=== PATIENT | female | born 1990 | race Caucasian/White ===

== ENCOUNTER 2017-01-18 09:00 | Inpatient (IN) ==
[2017-02-16] MEDS ORDERED: D5LR 1,000 ML IV PRN (06:42)
[2017-02-16] MEDS ORDERED: MAG-AL + SIM ORAL LIQUID 30ml PO PRN ×2 (06:42→15:54)
[2017-02-16] MEDS ORDERED: LIDOCAINE 1% (10mg/ml) 2mL INJ PF SDV ID PRN (06:42)
[2017-02-16] MEDS ORDERED: CARBOPROST 250 MCG/ML INJECTION IM PRN (06:42)
[2017-02-16] MEDS ORDERED: METHYLERGONOVINE 0.2 MG/ML INJECTION IM PRN (06:42)
[2017-02-16] MEDS ORDERED: CALCIUM CARBONATE Chewable 500mg TABLET PO PRN ×2 (06:42→15:54)
[2017-02-16] MEDS ORDERED: OXYTOCIN DRIP 30 UNIT/500 ML ML IV PRN (06:42)
[2017-02-16] MEDS ORDERED: ACETAMINOPHEN 500 MG TABLET PO PRN ×2 (06:42→15:54)
[2017-02-16 07:00] VITALS: BMI 30.9
[2017-02-16] MEDS ORDERED: CEFAZOLIN PREMIX (MC ONLY) 2 GM/50 ML BAG IV ONE (07:00)
[2017-02-16] MEDS: LR 1,000 ML IV PRN ×2 (07:01→08:42)
[2017-02-16] MEDS ORDERED: NALOXONE 0.4 MG/ML INJECTION IVP PRN (09:08)
[2017-02-16] MEDS ORDERED: ROPIVACAINE 1% 10MG/ML INJ 200 MG, SUFentanil 50 MCG in NS 100 ML EPI PRN (09:08)
[2017-02-16] MEDS ORDERED: ONDANSETRON 4 MG/2 ML INJECTION IVP PRN (09:08)
[2017-02-16] MEDS ORDERED: DiphenhydrAMINE 50 MG/ML INJECTION IVP PRN (09:08)
--- NOTE | 2017-02-16 09:08 | Anesthesia Preoperative Report ---
Anesthesia Epidural/Spinal Rec - Date and Time Date: 02/16/17 Preoperative Diagnosis: 39 wk Procedure: Labor Epidural Plan: Epidural - Vital Signs Vital Signs: Temperature 97.9 F 02/16/17 07:24 Pulse Rate 71 02/16/17 07:24 Respiratory Rate 16 02/16/17 07:24 Blood Pressure 129/82 02/16/17 07:24 Pulse Oximetry 98 02/16/17 07:24 Oxygen Delivery Method Room Air /Para: P:0 - Medictaions & Allergies Inpatient Medications: Current Medications Acetaminophen (Tylenol) 500 - 1,000 mg PO Q4H PRN PRN Reason: Pain Al Hydroxide/Mg Hydroxide (Maalox Plus) 30 ml PO Q3H PRN PRN Reason: Indigestion Calcium Carbonate (Tums) 500 - 1,000 mg PO Q2H PRN PRN Reason: Indigestion Carboprost Tromethamine (Hemabate) 250 mcg IM O PRN PRN Reason: .Downtime Cefazolin Sodium 1 g/ Sodium (Chloride) 100 mls @ 200 mls/hr IV Q8H ESTEBAN Dextrose/Lactated Ringer's (Dextrose 5%-Lactated Ringers) 1,000 mls @ 125 mls/ hr IV .Q8H PRN PRN Reason: Labor Last Admin: 02/16/17 07:01 Dose: 125 mls/hr Lactated Ringer's (Lactated Ringers) 1,000 mls @ 1,000 mls/hr IV .Q1H PRN PRN Reason: as directed Last Admin: 02/16/17 08:42 Dose: 1,000 mls/hr Oxytocin (Pitocin Drip) 30 unit in 500 mls @ 2 mls/hr IV .Q24H PRN; Protocol PRN Reason: Induction/Augmentation Last Admin: 02/16/17 07:02 Dose: 2 mls/hr Lidocaine HCl (Xylocaine-Mpf 1% Vial) 0.2 mg ID O PRN PRN Reason: IV Start Methylergonovine Maleate (Methergine) 0.2 mg IM O PRN Misoprostol (Cytotec) 800 mcg SC ONCE PRN Allergies/Adverse Reactions: Allergies Allergy/AdvReac Type Severity Reaction Status Date / Time gluten Allergy Unknown Verified 01/18/17 09:20 PCN Allergy Severe Hives Uncoded 01/18/17 09:20 SULFONAMIDES Allergy Severe Anaphylactic Uncoded 01/18/17 09:21 Shock - Home Medications Home Medications: Home Medications Medication Instructions Recorded Confirmed Type Medroxyprogesterone Acetate #0 10/24/14 History [Depo-Provera] Tramadol HCl 50 mg PO PRN #0 tab 10/24/14 History - Surgical History HEENT Surgeries: Reports: Oral Surgery (teeth) Anesthesia Reactions: None Hx Family Anesthesia Reaction: No History of Motion Sickness: No - Social History Second Hand Exposure: No Substance Use Type: does not use Alcohol Intake Frequency: does not drink Hx Chewing Tobacco Use: No - Pertinent Findings Lab Data: CBC and BMP 02/16/17 06:53 EKG Rhythm: Normal Sinus Rhythm - Physical Exam Respiratory Exam: lungs clear Cardiovascular Exam: regular rate and rhythm, no murmur - Airway Assessment Mallampati Score: II TMD: 3 Fingerbreadths Neck Extension: good Overall Assessment: no airway concerns - ASA ASA Score: 2 - Discussion Discussion: Discussed risks/options/alternatives of anesthesia and questions answered. Patient consents. Nursing pain assessment noted. Anesthesia Discussion: spouse Attestation Statement: Prior to the delivery of any anesthetic medication, I examined the patient, developed the plan, obtained the patient's consent and discussed the risk and benefits of the procedure with the patient/guardian.
[2017-02-16] MEDS ORDERED: CEFAZOLIN 1 G in NS 100 ML IV SCH (15:00)
[2017-02-16] MEDS ORDERED: HYDROCORTISONE 2.5% CREAM 30gm RECTALLY PRN (15:54)
[2017-02-16] MEDS ORDERED: SALINE FLUSH 10ml SYRINGE IVF PRN (15:54)
[2017-02-16] MEDS ORDERED: DiphenhydrAMINE 25 MG CAPSULE PO PRN (15:54)
[2017-02-16] MEDS ORDERED: OXYTOCIN DRIP 30 UNIT/500 ML ML IV SCH (15:54)
[2017-02-16] MEDS: IBUPROFEN 800 MG TABLET PO SCH (18:47)
--- NOTE | 2017-02-16 19:04 | Labor and Delivery Note ---
DATE OF DELIVERY 02/16/2017 NARRATIVE Ms. Guevara was admitted today for induction of labor at 39 weeks gestational age. This was done because the baby has a suspected central nervous system anomaly, specifically, an enlarged third ventricle. I felt it was in the patient's best interest to deliver while we had staff available for care. She was admitted and underwent Pitocin induction of labor with epidural analgesia. She progressed very well in first stage of labor. She began to push with excellent effort at the complete and +2 presentation. Baby was OA. She pushed very well for over an hour and a half, slowly descending the head. In the last 30 minutes the baseline began to rise. There had been some variable decelerations throughout but overall reassuring. As her effort became less and baseline continued to rise, I recommended an episiotomy. I therefore performed a second-degree episiotomy. She delivered in the next three contractions. head was delivered in the OA presentation. There was no evidence of nuchal cord. The baby was bulb suctioned on the perineum and we could see meconium staining on his head although there had not been any evidence of meconium prior to this. With a further push she delivered the baby in total. Baby was then further bulb suctioned. She was briefly placed on mother's abdomen. I doubly clamped the cord and cut it, then gave the baby to the nurses for care. This is a liveborn male with Apgars of 7/8/9. He weighed 6 pounds, 9.4 ounces. The placenta subsequently delivered spontaneously intact. It had a normal configuration and normal-appearing three-vessel cord. The second-degree episiotomy was repaired in the usual fashion with a 2-0 Vicryl. There were no other lacerations. Total blood loss was approximately 400 mL. Mother briefly had a fever of just over 100. I therefore cultured the placenta. She has since defervesced as has the baby. At the time of this dictation mother and baby are doing well. [facility]
[2017-02-16] MEDS ORDERED: ROPIVACAINE 0.2% 2MG/ML INJ 40 MG, SUFentanil 50 MCG in NS 100 ML INFIL ONE (22:00)
[2017-02-17] MEDS: HYDROCODONE/APAP 5mg/325mg TABLET PO PRN ×4 (00:54→19:12)
[2017-02-17] MEDS: IBUPROFEN 800 MG TABLET PO SCH ×3 (03:25→18:41)
[2017-02-17] MEDS: DOCUSATE CALCIUM 240 MG CAPSULE PO SCH (08:01)
[2017-02-17] MEDS: PRENATAL VITAMIN TABLET PO SCH (08:01)
--- NOTE | 2017-02-17 09:58 | OB/GYN Progress Note ---
OB-PP Progress Note - General PPD1 Maternal Group B Strep: Positive Maternal blood type: A+ Maternal Rubella Status: Immune - Subjective Date: 02/17/17 Lochia: Minimal Pain: contolled Voiding: voiding Nausea or Vomiting Present: No - Objective Vital Signs: Last Vital Signs Temp 97.8 F 02/16/17 23:15 Pulse 59 L 02/16/17 23:15 Resp 16 02/16/17 23:15 BP 112/76 02/16/17 23:15 Pulse Ox 98 02/16/17 23:15 Urine Output: good General: alert and oriented Abdomen: fundus firm, non-tender Extremities: non-tender Edema: none - Assessment Assessment: SP, , GBS positive - Plan Plan: routine care Expected date of discharge: 02/18/17
[2017-02-18] MEDS: IBUPROFEN 800 MG TABLET PO SCH ×4 (01:39→13:36)
[2017-02-18] MEDS: HYDROCODONE/APAP 5mg/325mg TABLET PO PRN ×3 (04:08→13:35)
[2017-02-18 07:25] VITALS: RESP 16; O2SAT 98
[2017-02-18] MEDS: PRENATAL VITAMIN TABLET PO SCH (09:34)
[2017-02-18] MEDS: DOCUSATE CALCIUM 240 MG CAPSULE PO SCH (09:35)
--- NOTE | 2017-02-18 13:14 | OB/GYN Progress Note ---
OB-PP Progress Note - General PPD1, PPD2 Maternal Group B Strep: Positive - Subjective Date: 02/18/17 Lochia: Minimal Pain: contolled Voiding: voiding Nausea or Vomiting Present: No - Objective Vital Signs: Last Vital Signs Temp 97.6 F 02/18/17 07:00 Pulse 71 02/18/17 07:00 Resp 16 02/18/17 07:00 BP 110/86 02/18/17 07:00 Pulse Ox 98 02/18/17 07:00 General: alert and oriented Cardiovascular: regular rate,rhythm Respiratory: non-labored Abdomen: fundus firm, non-tender Extremities: non-tender - Assessment Assessment: SP, , GBS positive - Plan Plan: routine care, discharge home Expected date of discharge: 02/18/17
--- NOTE | 2017-02-18 13:37 | Discharge Instructions ---
Discharge Plan - Med Rec/Dispo Prescriptions: New Hydrocodone/APAP 5/325 [[place] 5/325] 1 - 2 tab PO Q4H PRN #30 tablet PRN Reason: Pain Vitamin Tab [Blas ] 1 tab PO DAILY tablet Ibuprofen [Motrin] 800 mg PO Q8H #30 tablet Continue raNITIdine HCl [Zantac] 1 tab PO DAILY - Disposition Discharged Home, Self-Care
[2017-02-18 13:49] VITALS: BP 118/63; PULSE 78; TEMP 98.7
== END 2017-02-18 14:55 | disposition home or self-care (01) | DRG 774 ==
LOC: MC 02-16 06:36
PROVIDERS: ADMIT Obstetrics & Gynecology; ATTEND Obstetrics & Gynecology